=== PATIENT | male | born 1945 | race Caucasian/White ===

== ENCOUNTER 2020-05-22 08:24 | Emergency (ER) | payer OTHER ==
[~2020-05-22] VITALS: Ht 177.8 cm; Wt 74.4 kg
[~2020-05-22 08:24] MED LIST: HYDROCHLOROTH12.5 M1 PO; LISINOPRIL20 MG PO; ZOCOR20 MG PO
[2020-05-22] MEDS ORDERED: PREDNISONE 20 M20 MG PO (09:40)
[2020-05-22] MEDS ORDERED: VALACYCLOVIR1000 MG PO (09:40)
[2020-05-22 09:55] VITALS: BP 118/73
== END 2020-05-22 09:56 | disposition home or self-care (01) ==
LOC: ER 08:24
DX: G51.0 Bell's palsy (principal); I10 Essential (primary) hypertension; Z88.0 Allergy status to penicillin; Z79.899 Other long term (current) drug therapy; J45.909 Unspecified asthma, uncomplicated